=== PATIENT | male | born 1985 | race Hispanic/Latino ===

== ENCOUNTER 2018-04-20 23:07 | Observation (INO) | payer SELFPAY ==
[2018-04-20] MEDS ORDERED: Sodium Chloride 0.9% 1,000 ML IV STA (23:44)
[2018-04-20] MEDS ORDERED: DiphenhydrAMINE 50 mg/ml Inj IVP STA (23:44)
[2018-04-20] MEDS ORDERED: DiphenhydrAMINE 50 mg/ml Inj ONE (23:55)
[2018-04-20 23:59] LABS: BASO % 0.2 % (0.0-2.0); EOS % 0.2 % (0.0-4.0); LYMPH # 2.8 K/uL (1.0-4.3); LYMPH % 20.2 % (20.0-40.0); MEAN CELL VOLUME 84.8 fL (80.0-94.0); MEAN CORPUSCULAR HEMOGLOBIN 29.5 pg (27.0-31.0); MEAN CORPUSCULAR HGB CONC 34.8 g/dL (33.0-37.0); MEAN PLATELET VOLUME 8.2 fL (7.2-11.7); MONO # 0.8 K/uL (0.0-0.8); MONO % 5.6 % (0.0-10.0); NEUT # 10.3 K/uL (1.8-7.0); NEUT % 73.8 % (50.0-75.0); RBC 5.43 Mil/uL (4.40-5.90); RED CELL DISTRIBUTION WIDTH 12.4 % (11.5-14.5)
[2018-04-21 00:10] LABS: ALB/GLOB RATIO 1.7 (1.0-2.1); ALBUMIN 5.2 g/dL (3.5-5.0); ALT/SGPT 30 U/L (21-72); AST/SGOT 24 U/L (17-59); BLOOD UREA NITROGEN 21 mg/dL (9-20); CALCIUM 10.3 mg/dl (8.6-10.4); GFR NON-AFRICAN AMERICAN > 60
--- NOTE | 2018-04-21 00:24 | C.PDOC ---
History Of Present Illness 32 year old male presents to the ER with a complaint of left flank pain since 1430 today that has been worsening since onset. Patient states the pain is associated with intractable nausea and vomiting. Reports the pain feels similar to previous kidney stone, 5 years ago, required lithotripsy at that time. PMHx: No chronic illness Surgical Hx: No past surgeries Social Hx: Nonsmoker Family Hx: No significant Hx Time Seen by Provider: 04/20/18 23:25 Chief Complaint (Nursing): Male Genitourinary History Per: Patient History/Exam Limitations: no limitations Onset/Duration Of Symptoms: Hrs Current Symptoms Are (Timing): Worse Quality Of Discomfort: Unable To Describe Associated Symptoms: Nausea, Vomiting Alleviating Factors: None Recent travel outside of the [place]: No Past Medical History Reviewed: Historical Data, Nursing Documentation, Vital Signs Vital Signs: Last Vital Signs Temp 98.8 F 04/20/18 23:19 Pulse 104 H 04/20/18 23:19 Resp 22 04/20/18 23:19 BP 134/87 04/20/18 23:19 Pulse Ox 100 04/20/18 23:19 - Medical History PMH: Kidney Stones, Chronic Kidney Disease Surgical History: No Surg Hx Family History: States: No Known Family Hx - Social History Hx Tobacco Use: No Hx Alcohol Use: Yes Hx Substance Use: No - Immunization History Hx Tetanus Toxoid Vaccination: Yes Hx Influenza Vaccination: Yes Hx Pneumococcal Vaccination: No Review Of Systems Except As Marked, All Systems Reviewed And Found Negative. Gastrointestinal: Positive for: Nausea, Vomiting Musculoskeletal: Positive for: Other (Left flank pain) Physical Exam - Physical Exam Appears: In Acute Distress, Other (Actively vomiting in ER) Skin: Warm, Dry, Diaphoretic Head: Atraumatic, Normacephalic Eye(s): bilateral: PERRL, EOMI Oral Mucosa: Other (tacky) Lips: Normal Appearing Neck: Normal ROM, Trachea Midline Lymphatic: No Adenopathy Chest: Symmetrical Cardiovascular: Rhythm Regular, No Murmur Respiratory: Normal Breath Sounds, No Accessory Muscle Use Gastrointestinal/Abdominal: Soft, No Tenderness, No Mass, No Distention, No Guarding, No Rebound Back: CVA Tenderness (Left) Extremity: Normal ROM, No Deformity Neurological/Psych: Oriented x3, Normal Speech ED Course And Treatment - Laboratory Results Result Diagrams: 04/21/18 06:28 04/21/18 06:28 O2 Sat by Pulse Oximetry: 100 (Room air) Pulse Ox Interpretation: Normal - CT Scan/US CT abd/pel Other Rad Studies (CT/US): Read By Radiologist, Radiology Report Reviewed CT/US Interpretation: CT SCAN OF THE ABDOMEN AND PELVIS WITHOUT ORAL OR IV CONTRAST. CLINICAL INDICATION: Left flank pain. TECHNIQUE: Axial and reformatted sagittal and coronal images of the abdomen pelvis obtained without IV contrast administration. COMPARISON: None. FINDINGS: The visualized lung bases are unremarkable. Normal unenhanced liver. Normal gallbladder and extra hepatic biliary system. Normal unenhanced spleen. Normal pancreas. . Normal bilateral adrenal glands. Normal size of the right kidney. There is no right renal mass. There are no right renal calculi. There is no right hydronephrosis. Normal visualized right ureter. Normal size of the left k idney. There is no left renal mass. 1.8 cm obstructing stone of the left ureterovesical junction. Moderate left hydronephrosis. 3 mm left renal calyceal nonobstructing stone. Normal visualized stomach. Normal small intestine. Moderate amount of fecal residue in the colon. The appendix is visualized and appears normal. There is no demonstrated peritoneal fluid. Normal abdominal aorta. Normal inferior vena cava. Normal retroperitoneum. . Normal urinary bladder. There is no pelvic mass lesion or lymphadenopathy. There is no pelvic fluid. . Normal abdominal wall. Normal osseous structures. IMPRESSION: Obstructing stone of the left ureterovesical junction. . Electronically signed on Apr 21, 2018 1:00:38 AM EDT by: Madi Ayala M.D., Certified by ABR, MSK, Neuroradiology. Medical Decision Making Medical Decision Making: Impression: Left flank pain Differential diagnosis includes but is not limited to: Kidney stone, pyelone phritis, gastroenteritis, dehydration. Case discussed with Dr Steven Urology and Dr. Lucas Hospitalist for observation. Disposition - Disposition Disposition: HOSPITALIZED Disposition Time: 01:00 Condition: FAIR - POA Present On Arrival: None - Clinical Impression Clinical Impression: Nephrolithiasis - Scribe Statement The provider has reviewed the documentation as recorded by the Scriblori Beltran All medical record entries made by the Karinaiblori were at my direction and personally dictated by me. I have reviewed the chart and agree that the record accurately reflects my personal performance of the history, physical exam, medical decision making, and the department course for this patient. I have also personally directed, reviewed, and agree with the discharge instructions and disposition.
[2018-04-21] MEDS ORDERED: Dextrose 5%/0.9% NS 1,000 ML IV ONE (00:35)
[2018-04-21 00:45] LABS: URINE BILIRUBIN NEGATIVE (NEGATIVE); URINE BLOOD 2+ (NEGATIVE); URINE CALCIUM OXALATE CRYSTALS OCC /hpf (<OCC); URINE COLOR Yellow (YELLOW); URINE GLUCOSE (UA) NORMAL (Normal); URINE LEUKOCYTE ESTERASE 1+ Leu/uL (Negative); URINE PROTEIN 2+ mg/dL (NEGATIVE); URINE UROBILINOGEN NORMAL mg/dL (0.2-1.0)
[2018-04-21 00:47] LABS: URINE CLARITY Hazy (Clear)
[2018-04-21] MEDS ORDERED: cefTRIAXone IV 1 gm in Dextros 50 ML IV ONE (00:48)
[2018-04-21] MEDS ORDERED: Morphine 4 MG/ML VIAL ONE (00:51)
[2018-04-21] MEDS ORDERED: cefTRIAXone 1 gm 1 GM/100 ML BAG IVPB ONE (00:54)
[2018-04-21 00:56] LABS: BARBITURATES, UR NEGATIVE (NEGATIVE); BENZODIAZEPINES, UR NEGATIVE (NEGATIVE); OPIATES, UR NEGATIVE (NEGATIVE); PHENCYCLIDINE, UR NEGATIVE (NEGATIVE)
[2018-04-21 02:18] VITALS: RESP 20
--- NOTE | 2018-04-21 02:38 | CP.PCM.HP ---
<JenniIrina - Last Filed: 04/21/18 02:34> History of Present Illness - History of Present Illness History of Present Illness: Irina Arteaga PGY1 H&P for Dr. Lucas 32M with PMH nephrolithiasis 5y ago s/p lithotripsy presents to ED with L lower abdominal pain and L flank pain for 1 day. He reports worsening of this sharp pain over the course of the day, rating it a 10/10. He tried taking percocet and advil at home, but had no relief. Pt reports previous history of this kind of pain 5 y ago when he last had stones. Pt reports associated NB/NB vomiting, nausea, and chills, and constipation. He reports feeling the urge to urinate but not able to do so. He denies fever, shortness of breath, headache, chest pain, diarrhea, dysuria. In the ED, CT abd/pel showed 1.8 obstructive stone in the L uretovesicular junction. Pt was given toradol, reglan, morphine, flomax, and tylenol. Dr. Steven called in ED. SxH: none SocH: hookah occasionally, etoh occasionally, denies recreational drug use FamH: grandfather nephrolithiasis Allergies: PCN, unknown reaction Meds: none PMD: none Present on Admission - Present on Admission Any Indicators Present on Admission: No Review of Systems - Review of Systems Review of Systems: as per HPI Past Patient History - Past Social History Smoking Status: Never Smoked - CARDIAC Hx Cardiac Disorders: No - PULMONARY Hx Respiratory Disorders: No - NEUROLOGICAL Hx Neurological Disorder: No - HEENT Hx HEENT Problems: No - RENAL Hx Chronic Kidney Disease: Yes Hx Kidney Stones: Yes - ENDOCRINE/METABOLIC Hx Endocrine Disorders: No - HEMATOLOGICAL/ONCOLOGICAL Hx Blood Disorders: No - INTEGUMENTARY Hx Dermatological Problems: No - MUSCULOSKELETAL/RHEUMATOLOGICAL Hx Musculoskeletal Disorders: No - GASTROINTESTINAL Hx Gastrointestinal Disorders: No - GENITOURINARY/GYNECOLOGICAL Hx Genitourinary Disorders: No - PSYCHIATRIC Hx Substance Use: No - SURGICAL HISTORY Hx Surgeries: No - ANESTHESIA Hx Anesthesia: No Hx Anesthesia Reactions: No Hx Malignant Hyperthermia: No Meds Allergies/Adverse Reactions: Allergies Allergy/AdvReac Type Severity Reaction Status Date / Time Penicillins Allergy Unknown ITCHING Verified 04/21/18 03:26 Physical Exam - Constitutional Appears: Well, No Acute Distress - Head Exam Head Exam: ATRAUMATIC, NORMOCEPHALIC - Eye Exam Eye Exam: EOMI, Normal appearance Pupil Exam: NORMAL ACCOMODATION - ENT Exam ENT Exam: Mucous Membranes Moist, Normal Exam - Neck Exam Neck exam: Positive for: Normal Inspection - Respiratory Exam Respiratory Exam: Clear to Auscultation Bilateral, NORMAL BREATHING PATTERN. absent: Rales, Rhonchi, Wheezes, Respiratory Distress, Stridor - Cardiovascular Exam Cardiovascular Exam: Tachycardia, REGULAR RHYTHM, +S1, +S2. absent: Gallop, Rubs, Systolic Murmur - GI/Abdominal Exam GI & Abdominal Exam: Normal Bowel Sounds, Soft, Tenderness. absent: Distended, Guarding Additional comments: tenderness to palpation of LLQ, radiates to L back - Extremities Exam Extremities exam: Positive for: normal inspection. Negative for: pedal edema - Back Exam Back exam: absent: CVA tenderness (L), CVA tenderness (R) Additional comments: L flank tenderness - Neurological Exam Neurological exam: Alert, Oriented x3 - Psychiatric Exam Psychiatric exam: Normal Affect, Normal Mood Results - Vital Signs Recent Vital Signs: Last Vital Signs Temp 98.4 F 04/21/18 02:00 Pulse 74 04/21/18 02:00 Resp 20 04/21/18 02:00 BP 119/70 04/21/18 02:00 Pulse Ox 95 04/21/18 02:00 - Labs Result Diagrams: 04/20/18 23:53 04/20/18 23:53 Labs: Laboratory Results - last 24 hr 04/20/18 04/20/18 04/20/18 23:53 23:53 23:59 WBC 14.0 H RBC 5.43 Hgb 16.0 Hct 46.1 MCV 84.8 MCH 29.5 MCHC 34.8 RDW 12.4 Plt Count 237 MPV 8.2 Neut % (Auto) 73.8 Lymph % (Auto) 20.2 [place] % (Auto) 5.6 Eos % (Auto) 0.2 Baso % (Auto) 0.2 Neut # (Auto) 10.3 H Lymph # (Auto) 2.8 [place] # (Auto) 0.8 Eos # (Auto) 0.0 Baso # (Auto) 0.0 Sodium 141 Potassium 4.2 Chloride 98 Carbon Dioxide 29 Anion Gap 17 BUN 21 H Creatinine 1.0 Est GFR ( Amer) > 60 Est GFR (Non-Af Amer) > 60 Random Glucose 129 H Lactic Acid 2.1 Calcium 10.3 Total Bilirubin 1.1 AST 24 ALT 30 Alkaline Phosphatase 75 Total Protein 8.3 Albumin 5.2 H Globulin 3.1 Albumin/Globulin Ratio 1.7 Urine Color Urine Clarity Urine pH Ur Specific Evergreen Urine Protein Urine Glucose (UA) Urine Ketones Urine Blood Urine Nitrate Urine Bilirubin Urine Urobilinogen Ur Leukocyte Esterase Urine WBC (Auto) Urine RBC (Auto) Calcium Oxalate Crystal Urine Opiates Screen Urine Methadone Screen Ur Barbiturates Screen Ur Phencyclidine Scrn Ur Amphetamines Screen U Benzodiazepines Scrn U Oth Cocaine Metabols U Cannabinoids Screen 04/21/18 04/21/18 00:34 00:34 WBC RBC Hgb Hct MCV MCH MCHC RDW Plt Count MPV Neut % (Auto) Lymph % (Auto) [place] % (Auto) Eos % (Auto) Baso % (Auto) Neut # (Auto) Lymph # (Auto) [place] # (Auto) Eos # (Auto) Baso # (Auto) Sodium Potassium Chloride Carbon Dioxide Anion Gap BUN Creatinine Est GFR ( Amer) Est GFR (Non-Af Amer) Random Glucose Lactic Acid Calcium Total Bilirubin AST ALT Alkaline Phosphatase Total Protein Albumin Globulin Albumin/Globulin Ratio Urine Color Yellow Urine Clarity Hazy Urine pH 6.0 Ur Specific Evergreen 1.027 Urine Protein 2+ H Urine Glucose (UA) Normal Urine Ketones Negative Urine Blood 2+ H Urine Nitrate Negative Urine Bilirubin Negative Urine Urobilinogen Normal Ur Leukocyte Esterase 1+ H Urine WBC (Auto) 22 H Urine RBC (Auto) 16 H Calcium Oxalate Crystal Occ H Urine Opiates Screen Negative Urine Methadone Screen Negative Ur Barbiturates Screen Negative Ur Phencyclidine Scrn Negative Ur Amphetamines Screen Negative U Benzodiazepines Scrn Negative U Oth Cocaine Metabols Negative U Cannabinoids Screen Negative Assessment & Plan - Assessment and Plan (Free Text) Assessment: 32M with PMH nephrolithiasis 5y ago s/p lithotripsy presents to ED with L lower abdominal pain and L flank pain admitted for further treatment of L obstructive stone. Plan: Nephrolithiasis - pt afebrile - WBC 14.0 - CT abdomen: 1.8cm obstructive stone in L uretovesicular junction with moderate hydronephrosis - UA: +1 leuk esterase, 2+blood, 2+ protein, ca oxalate crystal - f/u BCx, UCx - cipro 400 IV q12h - toradol 30 IV q6h PRN moderate pain - morphine 4 IV q4h PRN severe pain - flomax 0.4 PO daily - zofran 4 IV q6h PRn - NS @150ml/hr - Urology consulted, Dr. Rachel Steven - f/u recs Constipation - colace 100 BID PPX: Pepcid 20 BID SCDS NPO Patient seen and case reviewed with Dr. Lucas <Otoniel Lucas - Last Filed: 04/21/18 07:02> Review of Systems - Review of Systems All systems: reviewed and no additional remarkable complaints except (reviewed except in hpi) Results - Vital Signs Recent Vital Signs: Last Vital Signs Temp 98.4 F 04/21/18 02:00 Pulse 74 04/21/18 02:00 Resp 20 04/21/18 02:00 BP 119/70 04/21/18 02:00 Pulse Ox 95 04/21/18 02:00 - Labs Result Diagrams: 04/21/18 06:28 04/20/18 23:53 Labs: Laboratory Results - last 24 hr 04/20/18 04/20/18 04/20/18 23:53 23:53 23:59 WBC 14.0 H RBC 5.43 Hgb 16.0 Hct 46.1 MCV 84.8 MCH 29.5 MCHC 34.8 RDW 12.4 Plt Count 237 MPV 8.2 Neut % (Auto) 73.8 Lymph % (Auto) 20.2 [place] % (Auto) 5.6 Eos % (Auto) 0.2 Baso % (Auto) 0.2 Neut # (Auto) 10.3 H Lymph # (Auto) 2.8 [place] # (Auto) 0.8 Eos # (Auto) 0.0 Baso # (Auto) 0.0 PT INR APTT Sodium 141 Potassium 4.2 Chloride 98 Carbon Dioxide 29 Anion Gap 17 BUN 21 H Creatinine 1.0 Est GFR ( Amer) > 60 Est GFR (Non-Af Amer) > 60 Random Glucose 129 H Lactic Acid 2.1 Calcium 10.3 Total Bilirubin 1.1 AST 24 ALT 30 Alkaline Phosphatase 75 Total Protein 8.3 Albumin 5.2 H Globulin 3.1 Albumin/Globulin Ratio 1.7 Urine Color Urine Clarity Urine pH Ur Specific Evergreen Urine Protein Urine Glucose (UA) Urine Ketones Urine Blood Urine Nitrate Urine Bilirubin Urine Urobilinogen Ur Leukocyte Esterase Urine WBC (Auto) Urine RBC (Auto) Calcium Oxalate Crystal Urine Opiates Screen Urine Methadone Screen Ur Barbiturates Screen Ur Phencyclidine Scrn Ur Amphetamines Screen U Benzodiazepines Scrn U Oth Cocaine Metabols U Cannabinoids Screen 04/21/18 04/21/18 04/21/18 00:34 00:34 06:28 WBC 7.5 RBC 4.68 Hgb 13.9 D Hct 39.7 MCV 84.8 MCH 29.7 MCHC 35.0 RDW 12.9 Plt Count 181 MPV 7.9 Neut % (Auto) 65.0 Lymph % (Auto) 25.9 [place] % (Auto) 8.6 Eos % (Auto) 0.3 Baso % (Auto) 0.2 Neut # (Auto) 4.9 Lymph # (Auto) 1.9 [place] # (Auto) 0.6 Eos # (Auto) 0.0 Baso # (Auto) 0.0 PT INR APTT Sodium Potassium Chloride Carbon Dioxide Anion Gap BUN Creatinine Est GFR ( Amer) Est GFR (Non-Af Amer) Random Glucose Lactic Acid Calcium Total Bilirubin AST ALT Alkaline Phosphatase Total Protein Albumin Globulin Albumin/Globulin Ratio Urine Color Yellow Urine Clarity Hazy Urine pH 6.0 Ur Specific Evergreen 1.027 Urine Protein 2+ H Urine Glucose (UA) Normal Urine Ketones Negative Urine Blood 2+ H Urine Nitrate Negative Urine Bilirubin Negative Urine Urobilinogen Normal Ur Leukocyte Esterase 1+ H Urine WBC (Auto) 22 H Urine RBC (Auto) 16 H Calcium Oxalate Crystal Occ H Urine Opiates Screen Negative Urine Methadone Screen Negative Ur Barbiturates Screen Negative Ur Phencyclidine Scrn Negative Ur Amphetamines Screen Negative U Benzodiazepines Scrn Negative U Oth Cocaine Metabols Negative U Cannabinoids Screen Negative 04/21/18 06:28 WBC RBC Hgb Hct MCV MCH MCHC RDW Plt Count MPV Neut % (Auto) Lymph % (Auto) [place] % (Auto) Eos % (Auto) Baso % (Auto) Neut # (Auto) Lymph # (Auto) [place] # (Auto) Eos # (Auto) Baso # (Auto) PT 14.1 H INR 1.3 APTT 32 Sodium Potassium Chloride Carbon Dioxide Anion Gap BUN Creatinine Est GFR ( Amer) Est GFR (Non-Af Amer) Random Glucose Lactic Acid Calcium Total Bilirubin AST ALT Alkaline Phosphatase Total Protein Albumin Globulin Albumin/Globulin Ratio Urine Color Urine Clarity Urine pH Ur Specific [place]green Urine Protein Urine Glucose (UA) Urine Ketones Urine Blood Urine Nitrate Urine Bilirubin Urine Urobilinogen Ur Leukocyte Esterase Urine WBC (Auto) Urine RBC (Auto) Calcium Oxalate Crystal Urine Opiates Screen Urine Methadone Screen Ur Barbiturates Screen Ur Phencyclidine Scrn Ur Amphetamines Screen U Benzodiazepines Scrn U Oth Cocaine Metabols U Cannabinoids Screen Attending/Attestation - Attestation I have personally seen and examined this patient.: Yes I have fully participated in the care of the patient.: Yes I have reviewed all pertinent clinical information: Yes Notes (Text): 04/21/18 06:57 L UPJ 1.8 mm calculus with hydronephrosis, with symptoms of pain, nausea, vomiting Plan IVF NPO Possible stent, then out patient lithotripsy, but patient wishing not have stent Emperic abx in anticipation of stent Flomax, pain control Urology consulted. Gi prophylaxis DVT prophylaxis scd due to possible stent, placement, but patient is also ambulatory. See orders for detail.
[2018-04-21] MEDS ORDERED: Ciprofloxacin 400mg/200ml D5W 400 MG/200 ML BAG IVPB SCH (02:45)
[2018-04-21] MEDS ORDERED: Sodium Chloride 0.9% 1,000 ML IV SCH (02:45)
[2018-04-21] MEDS ORDERED: Dextrose 5%/0.9% NS 1,000 ML IV SCH (03:00)
[2018-04-21 06:35] LABS: BASO % 0.2 % (0.0-2.0); EOS % 0.3 % (0.0-4.0); LYMPH # 1.9 K/uL (1.0-4.3); LYMPH % 25.9 % (20.0-40.0); MEAN CELL VOLUME 84.8 fL (80.0-94.0); MEAN CORPUSCULAR HEMOGLOBIN 29.7 pg (27.0-31.0); MEAN PLATELET VOLUME 7.9 fL (7.2-11.7); MONO # 0.6 K/uL (0.0-0.8); MONO % 8.6 % (0.0-10.0); NEUT # 4.9 K/uL (1.8-7.0); NRBC % 0.1 % (0.0-2.0); RBC 4.68 Mil/uL (4.40-5.90); RED CELL DISTRIBUTION WIDTH 12.9 % (11.5-14.5); WHITE BLOOD COUNT 7.5 K/uL (4.8-10.8)
[2018-04-21 06:40] LABS: HEMOGLOBIN 13.9 g/dL (12.0-18.0)
[2018-04-21 06:48] LABS: INR 1.3; PROTHROMBIN TIME 14.1 SECONDS (9.7-12.2)
[2018-04-21 07:36] LABS: ALB/GLOB RATIO 1.5 (1.0-2.1); ALBUMIN 3.7 g/dL (3.5-5.0); ALT/SGPT 35 U/L (21-72); AST/SGOT 22 U/L (17-59); BLOOD UREA NITROGEN 16 mg/dL (9-20); CALCIUM 8.7 mg/dl (8.6-10.4); GFR NON-AFRICAN AMERICAN > 60
--- NOTE | 2018-04-21 08:25 | CT ---
Date of service: 04/21/2018 PROCEDURE: CT Abdomen and Pelvis without intravenous contrast HISTORY: LEFT flank pain COMPARISON: None. TECHNIQUE: Multiple contiguous axial images were performed through the abdomen and pelvis without the use of intravenous contrast. Subsequently, sagittal and coronal reformatted images were obtained. Radiation dose: Total exam DLP = 877.81 mGy-cm. This CT exam was performed using one or more of the following dose reduction techniques: Automated exposure control, adjustment of the mA and/or kV according to patient size, and/or use of iterative reconstruction technique. FINDINGS: LOWER THORAX: Mild atelectasis within the right lower lobe. LIVER: Unremarkable. No gross lesion or ductal dilatation. GALLBLADDER AND BILE DUCTS: Unremarkable. PANCREAS: Unremarkable. No gross lesion or ductal dilatation. SPLEEN: Unremarkable. ADRENALS: Unremarkable. No mass. KIDNEYS AND URETERS: Moderate left renal hydronephrosis with large calculus in the left renal pelvis measuring up to 1.8 centimeters. Additional punctate 2 millimeter calculus in the lower pole of the left kidney. VASCULATURE: Unremarkable. No aortic aneurysm. BOWEL: Unremarkable. No obstruction. No gross mural thickening. Fecal retention in the colon. Scattered areas of underdistention throughout the colon. Some fecalization of some distal small bowel loops. APPENDIX: Unremarkable. Normal appendix. PERITONEUM: Unremarkable. No free fluid. No free air. LYMPH NODES: Unremarkable. No enlarged lymph nodes. BLADDER: Unremarkable. REPRODUCTIVE: Unremarkable. BONES: No acute fracture. OTHER FINDINGS: Calcified phleboliths in the pelvis. IMPRESSION: Moderate left renal hydronephrosis with large obstructing calculus in the left renal pelvis measuring up to 1.8 centimeters. Additional punctate 2 millimeter nonobstructing calculus in the lower pole of the left kidney. Additional findings as above. These findings were preliminarily reported at 1 a.m. on 04/21/[address] Madi Ayala from [employer].
[2018-04-21 08:26] VITALS: BP 104/62; PULSE 67; TEMP 98.2
--- NOTE | 2018-04-21 12:14 | CP.PCM.DIS ---
<Denzel Stark - Last Filed: 04/21/18 14:11> Provider - Provider Date of Admission: 04/21/18 01:00 Attending physician: Otoniel Lucas MD Primary care physician: None Consults: Urology - Dr. Jaime Steven Time Spent in preparation of Discharge (in minutes): 45 Diagnosis - Discharge Diagnosis (1) Nephrolithiasis Status: Acute Hospital Course - Lab Results Lab Results: Most Recent Lab Values WBC 7.5 K/uL (4.8-10.8) 04/21/18 06:28 RBC 4.68 Mil/uL (4.40-5.90) 04/21/18 06:28 Hgb 13.9 g/dL (12.0-18.0) D 04/21/18 06:28 Hct 39.7 % (35.0-51.0) 04/21/18 06:28 MCV 84.8 fL (80.0-94.0) 04/21/18 06:28 MCH 29.7 pg (27.0-31.0) 04/21/18 06:28 MCHC 35.0 g/dL (33.0-37.0) 04/21/18 06:28 RDW 12.9 % (11.5-14.5) 04/21/18 06:28 Plt Count 181 K/uL (130-400) 04/21/18 06:28 MPV 7.9 fL (7.2-11.7) 04/21/18 06:28 Neut % (Auto) 65.0 % (50.0-75.0) 04/21/18 06:28 Lymph % (Auto) 25.9 % (20.0-40.0) 04/21/18 06:28 [place] % (Auto) 8.6 % (0.0-10.0) 04/21/18 06:28 Eos % (Auto) 0.3 % (0.0-4.0) 04/21/18 06:28 Baso % (Auto) 0.2 % (0.0-2.0) 04/21/18 06:28 Neut # (Auto) 4.9 K/uL (1.8-7.0) 04/21/18 06:28 Lymph # (Auto) 1.9 K/uL (1.0-4.3) 04/21/18 06:28 Dewitt # (Auto) 0.6 K/uL (0.0-0.8) 04/21/18 06:28 Eos # (Auto) 0.0 K/uL (0.0-0.7) 04/21/18 06:28 Baso # (Auto) 0.0 K/uL (0.0-0.2) 04/21/18 06:28 PT 14.1 SECONDS (9.7-12.2) H 04/21/18 06:28 INR 1.3 04/21/18 06:28 APTT 32 SECONDS (21-34) 04/21/18 06:28 Sodium 140 mmol/L (132-148) 04/21/18 06:28 Potassium 4.0 mmol/L (3.6-5.2) 04/21/18 06:28 Chloride 104 mmol/L (98-107) 04/21/18 06:28 Carbon Dioxide 27 mmol/L (22-30) 04/21/18 06:28 Anion Gap 13 (10-20) 04/21/18 06:28 BUN 16 mg/dL (9-20) 04/21/18 06:28 Creatinine 0.8 mg/dL (0.8-1.5) 04/21/18 06:28 Est GFR ( Amer) > 60 04/21/18 06:28 Est GFR (Non-Af Amer) > 60 04/21/18 06:28 POC Glucose (mg/dL) 95 mg/dL (65-110) 04/21/18 06:30 Random Glucose 107 mg/dL (75-110) 04/21/18 06:28 Lactic Acid 2.1 mmol/L (0.7-2.1) 04/20/18 23:59 Calcium 8.7 mg/dl (8.6-10.4) 04/21/18 06:28 Total Bilirubin 1.0 mg/dL (0.2-1.3) 04/21/18 06:28 AST 22 U/L (17-59) 04/21/18 06:28 ALT 35 U/L (21-72) 04/21/18 06:28 Alkaline Phosphatase 56 U/L (38-126) 04/21/18 06:28 Total Protein 6.3 g/dL (6.3-8.3) 04/21/18 06:28 Albumin 3.7 g/dL (3.5-5.0) 04/21/18 06:28 Globulin 2.6 gm/dL (2.2-3.9) 04/21/18 06:28 Albumin/Globulin Ratio 1.5 (1.0-2.1) 04/21/18 06:28 Urine Color Yellow (YELLOW) 04/21/18 00:34 Urine Clarity Hazy (Clear) 04/21/18 00:34 Urine pH 6.0 (5.0-8.0) 04/21/18 00:34 Ur Specific [place] 1.027 (1.003-1.030) 04/21/18 00:34 Urine Protein 2+ mg/dL (NEGATIVE) H 04/21/18 00:34 Urine Glucose (UA) Normal mg/dL (Normal) 04/21/18 00:34 Urine Ketones Negative mg/dL (NEGATIVE) 04/21/18 00:34 Urine Blood 2+ (NEGATIVE) H 04/21/18 00:34 Urine Nitrate Negative (NEGATIVE) 04/21/18 00:34 Urine Bilirubin Negative (NEGATIVE) 04/21/18 00:34 Urine Urobilinogen Normal mg/dL (0.2-1.0) 04/21/18 00:34 Ur Leukocyte Esterase 1+ Shmuel/uL (Negative) H 18 00:34 Urine WBC (Auto) 22 /hpf (0-5) H 18 00:34 Urine RBC (Auto) 16 /hpf (0-3) H 18 00:34 Calcium Oxalate Crystal Occ /hpf (<OCC) H 18 00:34 Urine Opiates Screen Negative (NEGATIVE) 18 00:34 Urine Methadone Screen Negative (NEGATIVE) 04/21/18 00:34 Ur Barbiturates Screen Negative (NEGATIVE) 04/21/18 00:34 Ur Phencyclidine Scrn Negative (NEGATIVE) 18 00:34 Ur Amphetamines Screen Negative (NEGATIVE) 04/21/18 00:34 U Benzodiazepines Scrn Negative (NEGATIVE) 04/21/18 00:34 U Oth Cocaine Metabols Negative (NEGATIVE) 04/21/18 00:34 U Cannabinoids Screen Negative (NEGATIVE) 04/21/18 00:34 - Hospital Course Hospital Course: Medicine Discharge Summary for Hospitalist Service Denzel Stark DO PGY-1, [employer] This is a 32 year old male with PMHx nephrolithiasis 5 y ago s/p lithotripsy who presented to the ED on 04/20/18 with L lower abdominal pain and L flank pain for 1 day. He reported worsening of this sharp pain over the course of the day, rating it a 10/10. He tried taking percocet and advil at home, but had no relief. Pt reported previous history of this kind of pain 5 y ago when he last had stones. Pt reported associated NB/NB vomiting, nausea, and chills, and constipation. He reported feeling the urge to urinate but not able to do so. He denied fever, shortness of breath, headache, chest pain, diarrhea, dysuria. In the ED, CT abd/pelvis showed 1.8 obstructive stone in the L uretovesicular junction. Pt was given toradol, reglan, morphine, flomax, and tylenol. Dr. Steven (Urology) was consulted, who recommended outpatient follow-up for lithotripsy and pain control for symptoms. Also started patient on Flomax. Pt initially had elevated leukocytosis on admission labs, but normalized on repeat labs. Blood and urine cx were obtained, demonstrating no growth to date. Creatinine was within normal limits. Pt was started inpatient on Cipro, and instructed to complete 5 day PO course on discharge. Pt was also given 5 day course of Percocet for pain control at home for symptoms. Pt was instructed on discharge to follow-up with Dr. Peres ([facility]) within 1 week of hospital discharge for follow-up and to obtain referral to follow-up with Urology (Dr. Steven) outpatient for lithotripsy. All questions and concerns were addressed with patient prior to discharge, and he is in agreement with plan. Discharge Exam - Head Exam Head Exam: ATRAUMATIC, NORMOCEPHALIC - Eye Exam Eye Exam: EOMI, Normal appearance, PERRL - ENT Exam ENT Exam: Mucous Membranes Moist - Respiratory Exam Respiratory Exam: Clear to PA & Lateral, NORMAL BREATHING PATTERN, UNREMARKABLE. absent: Rales, Rhonchi, Wheezes - Cardiovascular Exam Cardiovascular Exam: REGULAR RHYTHM, +S1, +S2. absent: Gallop, Rubs, Systolic Murmur - GI/Abdominal Exam GI & Abdominal Exam: Normal Bowel Sounds, Soft, Unremarkable. absent: Distended, Firm, Guarding, Organomegaly, Rebound, Rigid, Tenderness - Extremities Exam Extremities exam: full ROM, normal capillary refill, pedal pulses present - Back Exam Back exam: FULL ROM. absent: CVA tenderness (L), CVA tenderness (R), muscle spasm, tenderness - Neurological Exam Neurological exam: Alert, CN II-XII Intact, Normal Gait, Oriented x3, Reflexes Normal - Psychiatric Exam Psychiatric exam: Normal Affect, Normal Mood - Skin Skin Exam: Dry, Intact, Normal Color, Warm Discharge Plan - Discharge Medications Prescriptions: RX: Ciprofloxacin [Cipro] 500 mg PO BID #10 tab oxyCODONE/Acetaminophen [Percocet 5/325 mg Tab] 1 ea PO Q6H PRN #20 tab PRN Reason: Pain, Severe (8-10) RX: Tamsulosin [Flomax] 0.4 mg PO DAILY #30 cap - Follow Up Plan Condition: GOOD Disposition: HOME/ ROUTINE Instructions: Kidney Stones in Adults, Ciprofloxacin (Systemic), Renal Colic (DC), Flank Pain (DC), Oxycodone and Acetaminophen, Tamsulosin Additional Instructions: Patient medically stable for discharge to home. Please follow with [facility] (Dr. Peres) after hospital discharge and for referral to Urologist. Please follow with Dr. Steven (Urology) within 1 week of discharge. Please take medications as prescribed. Complete antibiotic course. Do not drink alcohol while taking antibiotic or pain medications. Do not operate heavy machinery or drive while taking Percocet medication. Should symptoms recur or worsen, please call your primary care physician or report to your nearest emergency department. Referrals: Jaime Steven MD [Staff Provider] - Ammy Peres MD [Staff Provider] - <Viktor Bonilla - Last Filed: 04/21/18 15:05> Provider - Provider Date of Admission: 04/21/18 01:00 Attending physician: Otoniel Lucas MD Hospital Course - Lab Results Lab Results: Most Recent Lab Values WBC 7.5 K/uL (4.8-10.8) 04/21/18 06:28 RBC 4.68 Mil/uL (4.40-5.90) 04/21/18 06:28 Hgb 13.9 g/dL (12.0-18.0) D 04/21/18: Hct 39.7 % (35.0-51.0) 04/21/18 06: MCV 84.8 fL (80.0-94.0) 04/21/18 06: MCH 29.7 pg (27.0-31.0) 04/21/18: MCHC 35.0 g/dL (33.0-37.0) 04/21/18 06: RDW 12.9 % (11.5-14.5) 04/21/18: Plt Count 181 K/uL (130-400) 04/21/18: MPV 7.9 fL (7.2-11.7) 04/21/18: Neut % (Auto) 65.0 % (50.0-75.0) 04/21/18: Lymph % (Auto) 25.9 % (20.0-40.0) 04/21/18: [place] % (Auto) 8.6 % (0.0-10.0) 04/21/18: Eos % (Auto) 0.3 % (0.0-4.0) 04/21/18: Baso % (Auto) 0.2 % (0.0-2.0) 04/21/18: Neut # (Auto) 4.9 K/uL (1.8-7.0) 04/21/18: Lymph # (Auto) 1.9 K/uL (1.0-4.3) 04/21/18:28 [place]itt # (Auto) 0.6 K/uL (0.0-0.8) 04/21/18: Eos # (Auto) 0.0 K/uL (0.0-0.7) 04/21/18 06: Baso # (Auto) 0.0 K/uL (0.0-0.2) 04/21/18: PT 14.1 SECONDS (9.7-12.2) H 04/21/18: INR 1.3 04/21/18 06:28 APTT 32 SECONDS (21-34) 04/21/18 06:28 Sodium 140 mmol/L (132-148) 04/21/18 06:28 Potassium 4.0 mmol/L (3.6-5.2) 04/21/18 06:28 Chloride 104 mmol/L (98-107) 04/21/18 06:28 Carbon Dioxide 27 mmol/L (22-30) 04/21/18 06:28 Anion Gap 13 (10-20) 04/21/18 06:28 BUN 16 mg/dL (9-20) 04/21/18 06:28 Creatinine 0.8 mg/dL (0.8-1.5) 04/21/18 06:28 Est GFR ( Amer) > 60 04/21/18 06:28 Est GFR (Non-Af Amer) > 60 04/21/18 06:28 POC Glucose (mg/dL) 95 mg/dL (65-110) 04/21/18 06:30 Random Glucose 107 mg/dL (75-110) 04/21/18 06:28 Lactic Acid 2.1 mmol/L (0.7-2.1) 04/20/18 23:59 Calcium 8.7 mg/dl (8.6-10.4) 04/21/18 06:28 Total Bilirubin 1.0 mg/dL (0.2-1.3) 04/21/18 06:28 AST 22 U/L (17-59) 04/21/18 06:28 ALT 35 U/L (21-72) 04/21/18 06:28 Alkaline Phosphatase 56 U/L (38-126) 04/21/18 06:28 Total Protein 6.3 g/dL (6.3-8.3) 04/21/18 06:28 Albumin 3.7 g/dL (3.5-5.0) 04/21/18 06:28 Globulin 2.6 gm/dL (2.2-3.9) 04/21/18 06:28 Albumin/Globulin Ratio 1.5 (1.0-2.1) 04/21/18 06:28 Urine Color Yellow (YELLOW) 04/21/18 00:34 Urine Clarity Hazy (Clear) 04/21/18 00:34 Urine pH 6.0 (5.0-8.0) 04/21/18 00:34 Ur Specific [place] 1.027 (1.003-1.030) 04/21/18 00:34 Urine Protein 2+ mg/dL (NEGATIVE) H 04/21/18 00:34 Urine Glucose (UA) Normal mg/dL (Normal) 04/21/18 00:34 Urine Ketones Negative mg/dL (NEGATIVE) 04/21/18 00:34 Urine Blood 2+ (NEGATIVE) H 04/21/18 00:34 Urine Nitrate Negative (NEGATIVE) 04/21/18 00:34 Urine Bilirubin Negative (NEGATIVE) 04/21/18 00:34 Urine Urobilinogen Normal mg/dL (0.2-1.0) 04/21/18 00:34 Ur Leukocyte Esterase 1+ Shmuel/uL (Negative) H 04/21/18 00:34 Urine WBC (Auto) 22 /hpf (0-5) H 04/21/18 00:34 Urine RBC (Auto) 16 /hpf (0-3) H 04/21/18 00:34 Calcium Oxalate Crystal Occ /hpf (<OCC) H 04/21/18 00:34 Urine Opiates Screen Negative (NEGATIVE) 04/21/18 00:34 Urine Methadone Screen Negative (NEGATIVE) 04/21/18 00:34 Ur Barbiturates Screen Negative (NEGATIVE) 04/21/18 00:34 Ur Phencyclidine Scrn Negative (NEGATIVE) 04/21/18 00:34 Ur Amphetamines Screen Negative (NEGATIVE) 04/21/18 00:34 U Benzodiazepines Scrn Negative (NEGATIVE) 04/21/18 00:34 U Oth Cocaine Metabols Negative (NEGATIVE) 04/21/18 00:34 U Cannabinoids Screen Negative (NEGATIVE) 04/21/18 00:34 Attending/Attestation - Attestation I have personally seen and examined this patient.: Yes I have fully participated in the care of the patient.: Yes I have reviewed all pertinent clinical information, including history, physical exam and plan: Yes Notes (Text): 04/21/18 14:57 Medical attending: Patient was seen and examined by me. Agree with the above note by the resident The patient was with family member at bedside and now in any acute distress when I came and saw him. The pain had decreased greatly when I saw him and palpation produced only mild tenderness. Patient wanted to go home. And he had already been seen by urology earlier in the day I reviewed the CT as well, this is a large left side stone - he says he's had stones on that side as well. He does not have a WBC and did not report fevers, and also does not have L shift or bandemia. Patient does not have insurance so he will need to follow up at the [facility] here at [facility] for eventual referral to see urology. Patient will likley need to have lithotripsy done There is an RX for pain medication for a short duration. Viktor Bonilla
[2018-04-21 15:28] VITALS: O2SAT 100
[2018-04-22] MEDS ORDERED: Pneumococcal 23-Valent Vaccine IM ONE (10:00)
== END 2018-04-21 13:27 | disposition home or self-care (01) ==
LOC: C.ER 23:07 → C.9E 04-21 01:00 → C.6T 04-21 01:42
PROVIDERS: ADMIT Internal Medicine; ATTEND Internal Medicine
DX: N13.2 Hydronephrosis with renal and ureteral calculous obstruction (principal); K59.00 Constipation, unspecified; D72.829 Elevated white blood cell count, unspecified; N18.9 Chronic kidney disease, unspecified; Z87.442 Personal history of urinary calculi
CPT/HCPCS: 36415; 74176; 80053; 81001; 82948; 83605; 85025; 85610; 85730; 87040; 87086; 96361; 96365; 96366; 96375; 99285; G0378; G0480; J0744; J1200; J1885; J2270; J2405; J2765; J7030; J7042